=== PATIENT | male | born 1990 | race Caucasian/White ===

== ENCOUNTER 2017-12-31 11:24 | Emergency (ER) | payer SELFPAY ==
[~2017-12-31] VITALS: Ht 177.8 cm; Wt 82.0 kg
[2017-12-31] MEDS ORDERED: GADODIAMIDE PF 287 MG/ML 20 ML VIAL (for RAD MRI) IVCONTRAST ONE (11:25)
[2017-12-31 11:28] VITALS: BP 155/92; PULSE 77; RESP 18; TEMP 97.7; O2SAT 99
--- NOTE | 2017-12-31 11:32 | PD ---
HPI Chief Complaint: Dizziness Time Seen by Provider: 11:32 Travel History International Travel<30 days: No Contact w/Intl Traveler<30days: No Traveled to known affect area: No History of Present Illness HPI 27-year-old male came to the emergency room with history of dizziness for past 4 -5 days. Patient describes his dizziness as a sensation of imbalance anytime he turns his head left or right. Patient says that he went to the urgent care for this about 4 days ago and was given prescription for meclizine, amoxicillin and Zofran since he was nauseous as well in association. Patient has been taking these medications but his symptoms are not getting better. He seemed to very anxious and tearful. He says he is having difficult time walking since he keeps swaying to one side or the other because of this dizziness. No history of syncope or fall. He has never had these sensations before. No history of tinnitus. No history of hearing deficit. Vital signs are stable. No history of headache. [facility] Past Medical History Narrative Medical List of his past medical, surgical, social and family history is reviewed from the nursing note. Social History Tobacco Use: No Allergies-Medications (Allergen,Severity, Reaction): Coded Allergies: No Known Allergies (Verified Allergy, Intermediate, 12/31/17) Comments No known drug allergies. Narrative Medication Awaiting for the nurse to do the med reconciliation. Review of Systems Except as stated in HPI: all other systems reviewed are Neg Neurologic: Positive: Dizziness Physical Exam Narrative GENERAL: Awake, alert, tearful, anxious SKIN: Focused skin assessment warm/dry. HEAD: Atraumatic. Normocephalic. EYES: Pupils equal and round. No scleral icterus. No injection or drainage. No nystagmus ENT: No nasal bleeding or discharge. Mucous membranes pink and moist. NECK: Trachea midline. No JVD. CARDIOVASCULAR: Regular rate and rhythm. No murmur appreciated. RESPIRATORY: No accessory muscle use. Clear to auscultation. Breath sounds equal bilaterally. GASTROINTESTINAL: Abdomen soft, non-tender, nondistended. Hepatic and splenic margins not palpable. MUSCULOSKELETAL: No obvious deformities. No clubbing. No cyanosis. No edema. NEUROLOGICAL: Awake and alert. No obvious cranial nerve deficits. Motor grossly within normal limits. Normal speech. PSYCHIATRIC: Appropriate mood and affect; insight and judgment normal. Data Data Last Documented VS Orders Orders Electrocardiogram (12/31/17 11:40) Complete Blood Count With Diff (12/31/17 11:40) Basic Metabolic Panel (Bmp) (12/31/17 11:40) Troponin I (12/31/17 11:40) Ct Brain W/O Iv Contrast(Rout) (12/31/17 11:40) Ecg Monitoring (12/31/17 11:40) Iv Access Insert/Monitor (12/31/17 11:40) Oximetry (12/31/17 11:40) Mri Brain W&W/O Contrast (12/31/17 ) Gadodiamide Pf Inj (Omniscan Pf Inj) (12/31/17 11:25) Ed Discharge Order (12/31/17 14:32) Labs Laboratory Tests Test 12/31/17 12:00 White Blood Count 6.5 TH/MM3 Red Blood Count 5.41 MIL/MM3 Hemoglobin 16.8 GM/DL Hematocrit 48.0 % Mean Corpuscular Volume 88.6 FL Mean Corpuscular Hemoglobin 31.0 PG Mean Corpuscular Hemoglobin Concent 35.0 % Red Cell Distribution Width 13.3 % Platelet Count 259 TH/MM3 Mean Platelet Volume 7.6 FL Neutrophils (%) (Auto) 57.6 % Lymphocytes (%) (Auto) 30.3 % Monocytes (%) (Auto) 8.6 % Eosinophils (%) (Auto) 3.2 % Basophils (%) (Auto) 0.3 % Neutrophils # (Auto) 3.7 TH/MM3 Lymphocytes # (Auto) 2.0 TH/MM3 Monocytes # (Auto) 0.6 TH/MM3 Eosinophils # (Auto) 0.2 TH/MM3 Basophils # (Auto) 0.0 TH/MM3 CBC Comment DIFF FINAL Differential Comment Blood Urea Nitrogen 9 MG/DL Creatinine 0.99 MG/DL Random Glucose 93 MG/DL Calcium Level 9.5 MG/DL Sodium Level 140 MEQ/L Potassium Level 3.8 MEQ/L Chloride Level 107 MEQ/L Carbon Dioxide Level 24.7 MEQ/L Anion Gap 8 MEQ/L Estimat Glomerular Filtration Rate 90 ML/MIN Troponin I LESS THAN 0.02 NG/ML MDM Medical Decision Making Medical Screen Exam Complete: Yes Emergency Medical Condition: Yes Medical Record Reviewed: Yes Interpretation(s) Twelve-lead EKG was reviewed by me. Normal sinus rhythm, left axis deviation, nonspecific ST-T wave changes. Heart rate of 65 bpm Differential Diagnosis BPV, CVA, intracranial mass Narrative Course 12:26 PM awaiting for blood test results and CAT scan to be done and resulted. If the CAT scan is within normal limits I will order an MRI. Patient has been informed about this and he is agreeable to the plan. 2:33 PM MRI report is back and within normal limit as well. I will discharge the patient home at this point. Procedures EKG Prior to Arrival: No Diagnosis Primary Impression: Dizziness Referrals: [facility] 3 days Additional Instructions: Do not drive until the symptoms are gone. Continue taking the meclizine. Follow-up with primary care Med/Other Pt SpecificInfo: No Change to Meds Disposition: 01 DISCHARGE HOME Condition: Stable Lydia Cleaning MD Dec 31, 2017 11:32
--- NOTE | 2017-12-31 12:30 | RADRPT ---
EXAM DATE/TIME: 12/31/2017 12:15 [facility] COMPARISON: No previous studies available for comparison. INDICATIONS : Dizziness. RADIATION DOSE: 56.34 CTDIvol (mGy) MEDICAL HISTORY : None SURGICAL HISTORY : None. ENCOUNTER: Initial ACUITY: 4 - 6 days PAIN SCALE: 0/10 LOCATION: cranial TECHNIQUE: Multiple contiguous axial images were obtained of the head. Using automated exposure control and adj ustment of the mA and/or kV according to patient size, radiation dose was kept as low as reasonably a chievable to obtain optimal diagnostic quality images. DICOM format image data is available electro nically for review and comparison. FINDINGS: CEREBRUM: The ventricles are normal for age. No evidence of midline shift, mass lesion, hemorrhage or acute in farction. No extra-axial fluid collections are seen. POSTERIOR FOSSA: The cerebellum and brainstem are intact. The 4th ventricle is midline. The cerebellopontine angle i s unremarkable. EXTRACRANIAL: The visualized portion of the orbits is intact. SKULL: The calvaria is intact. No evidence of skull fracture. CONCLUSION: 1. No acute intracranial abnormality identified. Raffaele Ceballos MD on December 31, 2017 at 12:27 Board Certified Radiologist. This report was verified electronically.
[2017-12-31 12:35] LABS: AUTOMATED NEUTROPHIL # 3.7 TH/MM3 (1.8-7.7); BASOPHIL % 0.3 % (0.0-2.0); EOSINOPHIL # 0.2 TH/MM3 (0-0.4); EOSINOPHIL % 3.2 % (0.0-4.0); HEMOGLOBIN 16.8 GM/DL (13.0-17.0); LYMPH % 30.3 % (9.0-44.0); MEAN CELL VOLUME 88.6 FL (80.0-100.0); MEAN PLATELET VOLUME 7.6 FL (7.0-11.0); MONO % 8.6 % (0.0-8.0); MONOCYTE # 0.6 TH/MM3 (0-0.9); NEUT % 57.6 % (16.0-70.0); PLATELET COUNT 259 TH/MM3 (150-450); RED BLOOD COUNT 5.41 MIL/MM3 (4.50-5.90); RED CELL DISTRIBUTION WIDTH 13.3 % (11.6-17.2); WHITE BLOOD COUNT 6.5 TH/MM3 (4.0-11.0)
[2017-12-31 12:57] LABS: BICARBONATE 24.7 MEQ/L (21.0-32.0); BLOOD UREA NITROGEN 9 MG/DL (7-18); CALCIUM 9.5 MG/DL (8.5-10.1); CHLORIDE 107 MEQ/L (98-107); CREATININE 0.99 MG/DL (0.60-1.30); GLOMERULAR FILTRATION RATE 90 ML/MIN (>89); GLUCOSE,RANDOM 93 MG/DL (74-106); SODIUM (NA) 140 MEQ/L (136-145)
[2017-12-31 13:01] LABS: TROPONIN I LESS THAN 0.02 NG/ML (0.02-0.05)
[2017-12-31 13:15] VITALS: BP 132/80; PULSE 76; RESP 18; O2SAT 97; O2SAT 98
--- NOTE | 2017-12-31 14:29 | RADRPT ---
EXAM DATE/TIME: 12/31/2017 13:58 [facility] COMPARISON: No previous studies available for comparison. INDICATIONS : Dizziness. CONTRAST: 16 cc Omniscan (gadodiamide) IV MEDICAL HISTORY : None. SURGICAL HISTORY : None. ENCOUNTER: Initial ACUITY: 1 day PAIN SCORE: 0/10 LOCATION: cranial TECHNIQUE: Multiplanar, multisequence MRI of the brain was performed both prior to and following the administrat ion of paramagnetic contrast. FINDINGS: CEREBRUM: The ventricles are normal for age. No evidence of midline shift, mass lesion, hemorrhage or acute in farction. No extraaxial fluid collections are seen. The pituitary gland and suprasellar cistern are normal in configuration. WHITE MATTER: No significant signal abnormalities are seen in the white matter. POSTERIOR FOSSA: The cerebellum and brainstem are intact. The 4th ventricle is midline. The cerebellopontine angle is unremarkable. The cerebellar tonsils are normal in position. DIFFUSION IMAGING: No focal areas of restricted diffusion are seen. No evidence of acute infarction. EXTRACRANIAL: The visualized portions of the orbits and paranasal sinuses are unremarkable. POST-CONTRAST: No abnormal areas of parenchymal or dural enhancement. No evidence of blood-brain barrier breakdown. CONCLUSION: Normal examination. Elizabeth Dobbs MD on December 31, 2017 at 14:26 Board Certified Radiologist. This report was verified electronically.
[2017-12-31 15:29] VITALS: BP 142/78
--- NOTE | 2018-01-01 12:41 | EKG ---
Date Performed: 12/31/2017 Time Performed: 12:05:04 PTAGE: 27 years EKG: Sinus rhythm WITH OCCASIONAL VENTRICULAR PREMATURE COMPLEXES LEFT ANTERIOR FASCICULAR BLOCK Slight right ventricu lar conduction disturbance ABNORMAL ECG NO PREVIOUS TRACING DOCTOR: Martín Michaels Interpretating Date/Time 01/01/2018 12:40:48
== END 2017-12-31 15:32 | disposition home or self-care (01) ==
LOC: NEPC 11:24
DX: R42 Dizziness and giddiness (principal); R11.0 Nausea; I44.4 Left anterior fascicular block; I49.3 Ventricular premature depolarization; R94.31 Abnormal electrocardiogram [ECG] [EKG]
CPT/HCPCS: 70450; 70553; 80048; 84484; 85025; 93005; 99285; A9579